=== PATIENT | female | born 1985 | race Caucasian/White ===

== ENCOUNTER 2024-12-20 19:24 | Emergency (ER) | payer MEDICAID ==
[~2024-12-20] VITALS: Ht 165.1 cm; Wt 70.5 kg
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
[2024-12-20 21:09] VITALS: BP 106/73; PULSE 83; RESP 16; TEMP 97.6; O2SAT 99
== END 2024-12-20 20:48 | disposition home or self-care (01) ==
LOC: ER 19:25
DX: S13.4XXA Sprain of ligaments of cervical spine, initial encounter (principal); V89.2XXA Person injured in unspecified motor-vehicle accident, traffic, initial encounter; Y93.89 Activity, other specified; Y92.89 Other specified places as the place of occurrence of the external cause; Y99.8 Other external cause status
CPT/HCPCS: 99282